=== PATIENT | male | born 1940 | race Caucasian/White ===

== ENCOUNTER → 2018-03-23 | Outpatient (CLI) | payer MEDICARE, OTHER | END | disposition home or self-care (01) | LOC: VAS 09:57 | DX: I65.23 Occlusion and stenosis of bilateral carotid arteries (principal); Z88.0 Allergy status to penicillin | CPT/HCPCS: 93880 ==

== ENCOUNTER 2018-07-22 21:07 | Inpatient (IN) | payer MEDICARE, OTHER ==
[2018-07-22 22:25] LABS: ADD MAN DIFF? NO
[2018-07-22 22:27] LABS: BASOPHILS % 0.6 % (0.0-2.0); EOSINOPHILS # 0.3 10^3/ul (0.0-0.5); EOSINOPHILS % 6.3 % (0.0-7.0); HEMATOCRIT 28.4 % (42.0-52.0); HEMOGLOBIN 8.7 g/dl (14.0-18.0); LYMPHOCYTES # 1.1 10^3/ul (0.8-2.9); LYMPHOCYTES % 22.7 % (15.0-51.0); MEAN CORPUSCULAR HEMOGLOBIN 27.4 pg (29.0-33.0); MEAN CORPUSCULAR HGB CONC 30.6 g/dl (32.0-37.0); MEAN CORPUSCULAR VOLUME 89.3 fl (82.0-101.0); MEAN PLATELET VOLUME 9.4 fl (7.4-10.4); MONOCYTE # 0.5 10^3/ul (0.3-0.9); MONOCYTES % 10.2 % (0.0-11.0); NEUTROPHIL # 2.8 10^3/ul (1.6-7.5); PLATELET COUNT 113 10^3/UL (140-415); RED BLOOD COUNT 3.18 10^6/ul (4.70-6.10); RED CELL DISTRIBUTION WIDTH 14.4 % (11.5-14.5)
[2018-07-22 22:27] LABS: WHITE BLOOD COUNT 4.6 10^3/ul (4.8-10.8)
[2018-07-22 22:44] LABS: ANION GAP 3 (5-13); BLOOD UREA NITROGEN 46 mg/dl (7-20); CALCIUM 8.3 mg/dl (8.4-10.2); CARBON DIOXIDE 25 mmol/L (21-31); CHLORIDE 107 mmol/L (97-110); CREATININE 2.21 mg/dl (0.61-1.24); GLUCOSE 95 mg/dl (70-220); POTASSIUM 5.6 mmol/L (3.5-5.1); SODIUM 135 mmol/L (135-144)
[2018-07-22 22:55] LABS: TROPONIN-I 0.013 ng/ml (0.000-0.120)
[2018-07-22] MEDS ORDERED: ONDANSETRON 4 MG INJ IV (23:00)
[2018-07-22] MEDS ORDERED: BISACODYL (EC) 5 MG TAB PO (23:00)
[2018-07-22] MEDS ORDERED: NACL 0.9% 3 ML SYG IV (23:00)
[2018-07-22] MEDS ORDERED: ACETAMINOPHEN 325 MG TAB PO (23:00)
[2018-07-22] MEDS: SOD CHLORIDE 0.9% 500 ML IV (23:04)
[2018-07-22 23:55] LABS: CREATINE KINASE 50 IU/L (23-200)
[2018-07-22] MEDS: AMLODIPINE 5 MG TAB PO (23:58)
[2018-07-22] MEDS: hydrALAzine 20 MG INJ IV (23:59)
[2018-07-23 00:08] LABS: CK INDEX 1.9; CK-MB 0.96 ng/ml (0.0-2.4); TROPONIN-I 0.013 ng/ml (0.000-0.120)
[2018-07-23] MEDS: ALBUTEROL 0.083% (NEB) 2.5 MG/3 ML AMP HHN (03:48)
[2018-07-23 04:22] LABS: ADD MAN DIFF? NO
[2018-07-23 04:24] LABS: BASOPHILS % 0.4 % (0.0-2.0); EOSINOPHILS # 0.2 10^3/ul (0.0-0.5); EOSINOPHILS % 4.1 % (0.0-7.0); HEMATOCRIT 29.4 % (42.0-52.0); HEMOGLOBIN 9.2 g/dl (14.0-18.0); LYMPHOCYTES # 1.1 10^3/ul (0.8-2.9); LYMPHOCYTES % 22.2 % (15.0-51.0); MEAN CORPUSCULAR HEMOGLOBIN 27.6 pg (29.0-33.0); MEAN CORPUSCULAR HGB CONC 31.3 g/dl (32.0-37.0); MEAN CORPUSCULAR VOLUME 88.3 fl (82.0-101.0); MEAN PLATELET VOLUME 9.2 fl (7.4-10.4); MONOCYTE # 0.5 10^3/ul (0.3-0.9); MONOCYTES % 9.2 % (0.0-11.0); NEUTROPHIL # 3.1 10^3/ul (1.6-7.5); NEUTROPHILS % 63.7 % (39.0-77.0); PLATELET COUNT 108 10^3/UL (140-415); RED BLOOD COUNT 3.33 10^6/ul (4.70-6.10); RED CELL DISTRIBUTION WIDTH 14.4 % (11.5-14.5)
[2018-07-23 04:24] LABS: WHITE BLOOD COUNT 4.9 10^3/ul (4.8-10.8)
[2018-07-23 04:32] LABS: HEMOGLOBIN A1C 5.4 % (0-5.9)
[2018-07-23 04:51] LABS: CREATINE KINASE 49 IU/L (23-200)
[2018-07-23 04:53] LABS: ALANINE AMINOTRANSFERASE 10 IU/L (13-69); ALBUMIN 3.4 g/dl (3.3-4.9); ALBUMIN/GLOBULIN RATIO 1.13; ALKALINE PHOSPHATASE 79 IU/L (42-121); ANION GAP 8 (5-13); ASPARTATE AMINO TRANSFERASE 18 IU/L (15-46); BILIRUBIN,INDIRECT 0.1 mg/dl (0-1.1); BILIRUBIN,TOTAL 0.1 mg/dl (0.2-1.3); BLOOD UREA NITROGEN 45 mg/dl (7-20); CALCIUM 8.6 mg/dl (8.4-10.2); CARBON DIOXIDE 22 mmol/L (21-31); CHLORIDE 109 mmol/L (97-110); CHOL/HDL RATIO 3.5 RATIO; CHOLESTEROL 128 mg/dl (100-200); CREATININE 2.05 mg/dl (0.61-1.24); GLUCOSE 90 mg/dl (70-220); HDL CHOLESTEROL 36 mg/dl (31-75); LDL CHOLESTEROL,CALCULATED 76 mg/dl; MAGNESIUM 2.6 mg/dl (1.7-2.5); POTASSIUM 5.3 mmol/L (3.5-5.1); SODIUM 139 mmol/L (135-144); TOTAL PROTEIN 6.4 g/dl (6.1-8.1); TRIGLYCERIDES 79 mg/dl (0-149)
[2018-07-23 05:04] LABS: CK INDEX 1.5; CK-MB 0.75 ng/ml (0.0-2.4); TROPONIN-I < 0.012 ng/ml (0.000-0.120)
[2018-07-23] MEDS: PANTOPRAZOLE (EC) 40 MG TAB PO (06:42)
[2018-07-23] MEDS ORDERED: NON-FORMULARY/PATIENT OWN MED (Omeprazole* 20 MG) PO (09:00)
[2018-07-23] MEDS: ASPIRIN (EC) 81 MG TAB PO (09:04)
[2018-07-23] MEDS: DIPYRIDAMOLE/ASPIRIN (SR) CAP PO ×2 (09:04→22:19)
[2018-07-23] MEDS: AMLODIPINE 5 MG TAB PO (09:05)
[2018-07-23] MEDS: DOCUSATE SODIUM 100 MG CAP PO ×2 (09:05→22:17)
[2018-07-23] MEDS: METOPROLOL 50 MG TAB PO ×2 (10:54→22:18)
[2018-07-23] MEDS: FINASTERIDE 5 MG TAB PO (10:54)
[2018-07-23 12:11] LABS: IRON 67 ug/dl (35-150)
[2018-07-23 12:20] LABS: % IRON SATURATION 28 % SAT (22-52); TOTAL IRON BINDING CAPACITY 239 ug/dl (241-421)
[2018-07-23] MEDS: ISOSORBIDE DINITRATE 10 MG TAB PO ×2 (14:27→22:19)
[2018-07-23 18:17] LABS: ADD UMIC YES; UR ASCORBIC ACID NEGATIVE (NEGATIVE); UR BILIRUBIN (Dip) NEGATIVE (NEGATIVE); UR BLOOD (Dip) NEGATIVE (NEGATIVE); UR CLARITY CLEAR (CLEAR); UR COLOR YELLOW (YELLOW); UR GLUCOSE (Dip) NEGATIVE (NEGATIVE); UR KETONES (Dip) NEGATIVE (NEGATIVE); UR LEUKOCYTE ESTERASE (Dip) NEGATIVE Leu/ul (NEGATIVE); UR NITRITE (Dip) NEGATIVE (NEGATIVE); UR RBC 0 /HPF (0-5); UR TOTAL PROTEIN (Dip) 1+ mg/dl (NEGATIVE); UR UROBILINOGEN (Dip) NEGATIVE (NEGATIVE); UR WBC 0 /HPF (0-5)
[2018-07-23 18:39] LABS: SODIUM,URINE RANDOM 37 mmol/L (30-90)
[2018-07-23 18:39] LABS: CREATININE,URINE RANDOM 76.79 mg/dl (20-370)
[2018-07-23] MEDS: TERAZOSIN 5 MG CAP PO (21:00)
[2018-07-23] MEDS: ACETAMINOPHEN 325 MG TAB PO (22:17)
[2018-07-24] MEDS: ONDANSETRON 4 MG INJ IV ×2 (04:10→23:44)
[2018-07-24] MEDS: PANTOPRAZOLE (EC) 40 MG TAB PO (05:00)
[2018-07-24 05:21] LABS: ADD MAN DIFF? NO
[2018-07-24 05:24] LABS: WHITE BLOOD COUNT 6.2 10^3/ul (4.8-10.8)
[2018-07-24 05:24] LABS: BASOPHILS % 0.5 % (0.0-2.0); EOSINOPHILS # 0.1 10^3/ul (0.0-0.5); EOSINOPHILS % 1.5 % (0.0-7.0); HEMATOCRIT 25.7 % (42.0-52.0); LYMPHOCYTES # 0.8 10^3/ul (0.8-2.9); LYMPHOCYTES % 12.3 % (15.0-51.0); MEAN CORPUSCULAR HEMOGLOBIN 27.4 pg (29.0-33.0); MEAN CORPUSCULAR HGB CONC 31.1 g/dl (32.0-37.0); MEAN PLATELET VOLUME 10.1 fl (7.4-10.4); MONOCYTE # 0.5 10^3/ul (0.3-0.9); MONOCYTES % 7.9 % (0.0-11.0); NEUTROPHIL # 4.8 10^3/ul (1.6-7.5); NEUTROPHILS % 77.5 % (39.0-77.0); PLATELET COUNT 114 10^3/UL (140-415); RED BLOOD COUNT 2.92 10^6/ul (4.70-6.10); RED CELL DISTRIBUTION WIDTH 14.2 % (11.5-14.5)
[2018-07-24 05:55] LABS: ANION GAP 7 (5-13); BLOOD UREA NITROGEN 51 mg/dl (7-20); CALCIUM 8.6 mg/dl (8.4-10.2); CARBON DIOXIDE 22 mmol/L (21-31); CHLORIDE 104 mmol/L (97-110); CREATININE 2.44 mg/dl (0.61-1.24); GLUCOSE 113 mg/dl (70-220); POTASSIUM 5.2 mmol/L (3.5-5.1); SODIUM 133 mmol/L (135-144)
[2018-07-24] MEDS: DOCUSATE SODIUM 100 MG CAP PO ×2 (10:46→20:21)
[2018-07-24] MEDS: ISOSORBIDE DINITRATE 10 MG TAB PO ×3 (10:46→20:21)
[2018-07-24] MEDS: METOPROLOL 50 MG TAB PO (10:47)
[2018-07-24] MEDS: AMLODIPINE 5 MG TAB PO ×2 (10:47→23:41)
[2018-07-24] MEDS: DIPYRIDAMOLE/ASPIRIN (SR) CAP PO ×2 (10:47→20:22)
[2018-07-24] MEDS: FINASTERIDE 5 MG TAB PO (10:47)
[2018-07-24] MEDS: EPOETIN 10000 UNITS/ML (NON ESRD/NON ONCOLOGY) SC (10:49)
[2018-07-24] MEDS: SODIUM POLYSTYRENE 15 GM KIT (POWDER + SORBITOL) PO (13:46)
[2018-07-24] MEDS: ACETAMINOPHEN 325 MG TAB PO (20:19)
[2018-07-24] MEDS: TERAZOSIN 5 MG CAP PO (20:21)
[2018-07-24] MEDS: METOPROLOL 100 MG TAB PO (20:22)
[2018-07-24] MEDS: traZODone 50 MG TAB PO (23:45)
[2018-07-25 05:26] LABS: ADD MAN DIFF? NO
[2018-07-25 05:34] LABS: BASOPHILS % 0.3 % (0.0-2.0); EOSINOPHILS # 0.1 10^3/ul (0.0-0.5); EOSINOPHILS % 1.3 % (0.0-7.0); HEMATOCRIT 28.6 % (42.0-52.0); HEMOGLOBIN 8.9 g/dl (14.0-18.0); LYMPHOCYTES # 1.1 10^3/ul (0.8-2.9); LYMPHOCYTES % 17.7 % (15.0-51.0); MEAN CORPUSCULAR HEMOGLOBIN 27.6 pg (29.0-33.0); MEAN CORPUSCULAR HGB CONC 31.1 g/dl (32.0-37.0); MEAN CORPUSCULAR VOLUME 88.5 fl (82.0-101.0); MEAN PLATELET VOLUME 10.8 fl (7.4-10.4); MONOCYTE # 0.5 10^3/ul (0.3-0.9); MONOCYTES % 7.1 % (0.0-11.0); NEUTROPHIL # 4.7 10^3/ul (1.6-7.5); NEUTROPHILS % 73.3 % (39.0-77.0); PLATELET COUNT 134 10^3/UL (140-415); RED BLOOD COUNT 3.23 10^6/ul (4.70-6.10); RED CELL DISTRIBUTION WIDTH 14.1 % (11.5-14.5)
[2018-07-25 05:34] LABS: WHITE BLOOD COUNT 6.4 10^3/ul (4.8-10.8)
[2018-07-25 05:55] LABS: PHOSPHORUS 4.7 mg/dl (2.5-4.9)
[2018-07-25 05:55] LABS: MAGNESIUM 2.5 mg/dl (1.7-2.5)
[2018-07-25] MEDS: PANTOPRAZOLE (EC) 40 MG TAB PO (06:17)
[2018-07-25 06:19] LABS: ANION GAP 10 (5-13); BLOOD UREA NITROGEN 43 mg/dl (7-20); CALCIUM 8.4 mg/dl (8.4-10.2); CARBON DIOXIDE 22 mmol/L (21-31); CHLORIDE 100 mmol/L (97-110); CREATININE 2.68 mg/dl (0.61-1.24); GLUCOSE 154 mg/dl (70-220); POTASSIUM 4.5 mmol/L (3.5-5.1); SODIUM 132 mmol/L (135-144)
[2018-07-25] MEDS: FINASTERIDE 5 MG TAB PO (08:43)
[2018-07-25] MEDS: DOCUSATE SODIUM 100 MG CAP PO ×2 (08:43→20:34)
[2018-07-25] MEDS: AMLODIPINE 5 MG TAB PO ×3 (08:44→09:00)
[2018-07-25] MEDS: ISOSORBIDE DINITRATE 10 MG TAB PO ×3 (08:44→20:35)
[2018-07-25] MEDS: METOPROLOL 100 MG TAB PO ×2 (08:44→20:35)
[2018-07-25] MEDS: DIPYRIDAMOLE/ASPIRIN (SR) CAP PO ×3 (08:45→09:00)
[2018-07-25] MEDS ORDERED: AMLODIPINE 10 MG TAB PO (09:00)
[2018-07-25] MEDS: NIFEdipine (XL) 60 MG TAB PO (09:30)
[2018-07-25 17:51] LABS: CREATININE, RANDOM URINE 77 mg/dL (20-320); MICROALBUMIN 43.2 mg/dL; MICROALBUMIN/CREATININE RATIO 561 (<30)
[2018-07-25] MEDS: TERAZOSIN 5 MG CAP PO (20:34)
[2018-07-25] MEDS: NIFEdipine (XL) 30 MG TAB PO (20:35)
[2018-07-26] MEDS: PANTOPRAZOLE (EC) 40 MG TAB PO (05:25)
[2018-07-26 05:55] LABS: ADD MAN DIFF? NO
[2018-07-26 05:59] LABS: BASOPHILS % 0.4 % (0.0-2.0); EOSINOPHILS # 0.2 10^3/ul (0.0-0.5); EOSINOPHILS % 4.3 % (0.0-7.0); HEMOGLOBIN 8.7 g/dl (14.0-18.0); LYMPHOCYTES % 22.6 % (15.0-51.0); MEAN CORPUSCULAR HEMOGLOBIN 28.1 pg (29.0-33.0); MEAN CORPUSCULAR HGB CONC 32.2 g/dl (32.0-37.0); MEAN CORPUSCULAR VOLUME 87.1 fl (82.0-101.0); MONOCYTE # 0.6 10^3/ul (0.3-0.9); MONOCYTES % 12.6 % (0.0-11.0); NEUTROPHIL # 2.8 10^3/ul (1.6-7.5); NEUTROPHILS % 59.7 % (39.0-77.0); PLATELET COUNT 124 10^3/UL (140-415); RED CELL DISTRIBUTION WIDTH 14.3 % (11.5-14.5)
[2018-07-26 05:59] LABS: WHITE BLOOD COUNT 4.6 10^3/ul (4.8-10.8)
[2018-07-26 06:40] LABS: ANION GAP 2 (5-13); BLOOD UREA NITROGEN 39 mg/dl (7-20); CALCIUM 8.2 mg/dl (8.4-10.2); CARBON DIOXIDE 27 mmol/L (21-31); CHLORIDE 103 mmol/L (97-110); CREATININE 2.67 mg/dl (0.61-1.24); GLUCOSE 95 mg/dl (70-220); MAGNESIUM 2.4 mg/dl (1.7-2.5); PHOSPHORUS 4.3 mg/dl (2.5-4.9); POTASSIUM 4.9 mmol/L (3.5-5.1); SODIUM 132 mmol/L (135-144)
[2018-07-26] MEDS: DIPYRIDAMOLE/ASPIRIN (SR) CAP PO (08:03)
[2018-07-26] MEDS: NIFEdipine (XL) 30 MG TAB PO ×2 (08:21→21:00)
[2018-07-26] MEDS: FINASTERIDE 5 MG TAB PO (08:22)
[2018-07-26] MEDS: DOCUSATE SODIUM 100 MG CAP PO ×2 (08:22→20:59)
[2018-07-26] MEDS: ISOSORBIDE DINITRATE 10 MG TAB PO ×3 (08:22→20:59)
[2018-07-26] MEDS: METOPROLOL 100 MG TAB PO ×2 (08:22→21:00)
[2018-07-26] MEDS: TERAZOSIN 5 MG CAP PO (20:59)
[2018-07-27 05:23] LABS: ANION GAP 9 (5-13); BLOOD UREA NITROGEN 40 mg/dl (7-20); CARBON DIOXIDE 24 mmol/L (21-31); CHLORIDE 97 mmol/L (97-110); CREATININE 2.74 mg/dl (0.61-1.24); GLUCOSE 108 mg/dl (70-220); MAGNESIUM 2.3 mg/dl (1.7-2.5); PHOSPHORUS 4.6 mg/dl (2.5-4.9); POTASSIUM 4.7 mmol/L (3.5-5.1); SODIUM 130 mmol/L (135-144)
[2018-07-27] MEDS: PANTOPRAZOLE (EC) 40 MG TAB PO (05:41)
[2018-07-27] MEDS: ACETAMINOPHEN 325 MG TAB PO (07:39)
[2018-07-27] MEDS: DOCUSATE SODIUM 100 MG CAP PO ×2 (08:39→20:28)
[2018-07-27] MEDS: ASPIRIN (EC) 81 MG TAB PO (08:39)
[2018-07-27] MEDS: FINASTERIDE 5 MG TAB PO (08:39)
[2018-07-27] MEDS: METOPROLOL 100 MG TAB PO ×2 (08:40→20:29)
[2018-07-27] MEDS: NIFEdipine (XL) 30 MG TAB PO ×2 (08:40→20:29)
[2018-07-27] MEDS: ISOSORBIDE DINITRATE 10 MG TAB PO ×3 (08:40→20:29)
[2018-07-27] MEDS: TERAZOSIN 5 MG CAP PO (20:29)
[2018-07-28] MEDS: PANTOPRAZOLE (EC) 40 MG TAB PO (05:37)
[2018-07-28 05:53] LABS: ADD MAN DIFF? NO
[2018-07-28 05:56] LABS: BASOPHILS % 0.4 % (0.0-2.0); EOSINOPHILS # 0.3 10^3/ul (0.0-0.5); EOSINOPHILS % 4.5 % (0.0-7.0); HEMATOCRIT 25.5 % (42.0-52.0); HEMOGLOBIN 8.2 g/dl (14.0-18.0); LYMPHOCYTES # 0.9 10^3/ul (0.8-2.9); LYMPHOCYTES % 16.2 % (15.0-51.0); MEAN CORPUSCULAR HEMOGLOBIN 27.6 pg (29.0-33.0); MEAN CORPUSCULAR HGB CONC 32.2 g/dl (32.0-37.0); MEAN CORPUSCULAR VOLUME 85.9 fl (82.0-101.0); MEAN PLATELET VOLUME 9.7 fl (7.4-10.4); MONOCYTE # 0.6 10^3/ul (0.3-0.9); MONOCYTES % 10.7 % (0.0-11.0); NEUTROPHIL # 3.7 10^3/ul (1.6-7.5); NEUTROPHILS % 67.8 % (39.0-77.0); PLATELET COUNT 147 10^3/UL (140-415); RED BLOOD COUNT 2.97 10^6/ul (4.70-6.10); RED CELL DISTRIBUTION WIDTH 14.4 % (11.5-14.5)
[2018-07-28 05:56] LABS: WHITE BLOOD COUNT 5.5 10^3/ul (4.8-10.8)
[2018-07-28 06:32] LABS: ANION GAP 10 (5-13); BLOOD UREA NITROGEN 37 mg/dl (7-20); CALCIUM 7.9 mg/dl (8.4-10.2); CARBON DIOXIDE 24 mmol/L (21-31); CHLORIDE 98 mmol/L (97-110); CREATININE 2.56 mg/dl (0.61-1.24); GLUCOSE 141 mg/dl (70-220); MAGNESIUM 2.4 mg/dl (1.7-2.5); PHOSPHORUS 3.9 mg/dl (2.5-4.9); POTASSIUM 4.3 mmol/L (3.5-5.1); SODIUM 132 mmol/L (135-144)
[2018-07-28] MEDS: ASPIRIN (EC) 81 MG TAB PO (08:40)
[2018-07-28] MEDS: FINASTERIDE 5 MG TAB PO (08:40)
[2018-07-28] MEDS: NIFEdipine (XL) 30 MG TAB PO (08:41)
[2018-07-28] MEDS: ISOSORBIDE DINITRATE 10 MG TAB PO ×2 (08:42→16:11)
[2018-07-28] MEDS: DOCUSATE SODIUM 100 MG CAP PO (08:42)
[2018-07-28] MEDS: METOPROLOL 100 MG TAB PO (08:42)
== END 2018-07-28 20:30 | disposition home or self-care (01) | DRG 312 ==
LOC: 6WM 22:58 → 2NE 07-28 13:57 → E/R 21:07
DX: I95.2 Hypotension due to drugs (principal); N17.9 Acute kidney failure, unspecified; I16.1 Hypertensive emergency; E87.1 Hypo-osmolality and hyponatremia; E87.5 Hyperkalemia; I65.21 Occlusion and stenosis of right carotid artery; D63.1 Anemia in chronic kidney disease; N18.3 Chronic kidney disease, stage 3 (moderate); R55 Syncope and collapse; I12.9 Hypertensive chronic kidney disease with stage 1 through stage 4 chronic kidney disease, or unspecified chronic kidney disease; E78.5 Hyperlipidemia, unspecified; I25.10 Atherosclerotic heart disease of native coronary artery without angina pectoris; N40.0 Benign prostatic hyperplasia without lower urinary tract symptoms; T44.6X5A Adverse effect of alpha-adrenoreceptor antagonists, initial encounter; Y92.019 Unspecified place in single-family (private) house as the place of occurrence of the external cause
CPT/HCPCS: 36415; 70450; 70549; 70551; 71045; 72100; 76775; 80048; 80053; 80061; 81001; 81003; 82043; 82550; 82553; 82728; 82962; 83036; 83540; 83735; 84100; 84155; 84300; 84443; 84484; 85025; 93005; 93306; 93880; 94664; 97161; 99285-25; G0378

== ENCOUNTER → 2018-07-22 | Outpatient (CLI) | payer MEDICARE, OTHER | END | disposition home or self-care (01) | LOC: RAD 11:11 | DX: M54.5 Low back pain (principal) | CPT/HCPCS: 72100 ==

== ENCOUNTER 2018-09-29 10:45 | Inpatient (IN) | payer MEDICARE, OTHER ==
[2018-09-29 12:21] LABS: ADD MAN DIFF? NO
[2018-09-29 12:29] LABS: WHITE BLOOD COUNT 5.1 10^3/ul (4.8-10.8)
[2018-09-29 12:29] LABS: BASOPHILS % 0.6 % (0.0-2.0); EOSINOPHILS # 0.3 10^3/ul (0.0-0.5); EOSINOPHILS % 6.6 % (0.0-7.0); HEMATOCRIT 28.5 % (42.0-52.0); HEMOGLOBIN 8.9 g/dl (14.0-18.0); LYMPHOCYTES % 20.2 % (15.0-51.0); MEAN CORPUSCULAR HEMOGLOBIN 27.7 pg (29.0-33.0); MEAN CORPUSCULAR HGB CONC 31.2 g/dl (32.0-37.0); MEAN CORPUSCULAR VOLUME 88.8 fl (82.0-101.0); MEAN PLATELET VOLUME 9.2 fl (7.4-10.4); MONOCYTE # 0.5 10^3/ul (0.3-0.9); MONOCYTES % 9.3 % (0.0-11.0); NEUTROPHIL # 3.2 10^3/ul (1.6-7.5); NEUTROPHILS % 63.1 % (39.0-77.0); PLATELET COUNT 119 10^3/UL (140-415); RED BLOOD COUNT 3.21 10^6/ul (4.70-6.10); RED CELL DISTRIBUTION WIDTH 15.1 % (11.5-14.5)
[2018-09-29 12:58] LABS: ANION GAP 8 (5-13); BLOOD UREA NITROGEN 42 mg/dl (7-20); CALCIUM 8.8 mg/dl (8.4-10.2); CARBON DIOXIDE 23 mmol/L (21-31); CHLORIDE 108 mmol/L (97-110); CREATININE 2.55 mg/dl (0.61-1.24); GLUCOSE 100 mg/dl (70-220); POTASSIUM 5.3 mmol/L (3.5-5.1); SODIUM 139 mmol/L (135-144)
[2018-09-29] MEDS: NA POLYST SULFON 15 GM/60 ML BTL PO (13:12)
[2018-09-29] MEDS ORDERED: ACETAMINOPHEN 325 MG TAB PO (13:30)
[2018-09-29] MEDS ORDERED: ONDANSETRON 4 MG INJ IV ×2 (13:30→15:00)
[2018-09-29] MEDS ORDERED: NACL 0.9% 3 ML SYG IV (15:00)
[2018-09-29] MEDS ORDERED: DOCUSATE SODIUM 100 MG CAP PO (15:00)
[2018-09-29] MEDS ORDERED: MAGNESIUM HYDROXIDE 30ML CUP PO (15:00)
[2018-09-29] MEDS ORDERED: TERAZOSIN 1 MG CAP (20:39)
[2018-09-29] MEDS: GUAIFENESIN/DM 5ML CUP PO (20:41)
[2018-09-29] MEDS: HEPARIN 5,000 UNIT/1 ML VIAL SC (20:46)
[2018-09-29] MEDS: METOPROLOL 100 MG TAB PO (21:00)
[2018-09-29] MEDS: TERAZOSIN 5 MG CAP PO (22:38)
[2018-09-30 05:53] LABS: ADD MAN DIFF? NO
[2018-09-30 06:02] LABS: BASOPHILS % 0.6 % (0.0-2.0); EOSINOPHILS # 0.4 10^3/ul (0.0-0.5); EOSINOPHILS % 7.2 % (0.0-7.0); HEMATOCRIT 25.7 % (42.0-52.0); LYMPHOCYTES # 1.1 10^3/ul (0.8-2.9); LYMPHOCYTES % 21.2 % (15.0-51.0); MEAN CORPUSCULAR HEMOGLOBIN 27.4 pg (29.0-33.0); MEAN CORPUSCULAR HGB CONC 31.1 g/dl (32.0-37.0); MEAN PLATELET VOLUME 9.5 fl (7.4-10.4); MONOCYTE # 0.6 10^3/ul (0.3-0.9); MONOCYTES % 11.6 % (0.0-11.0); PLATELET COUNT 109 10^3/UL (140-415); RED BLOOD COUNT 2.92 10^6/ul (4.70-6.10); RED CELL DISTRIBUTION WIDTH 15.3 % (11.5-14.5)
[2018-09-30 06:30] LABS: ANION GAP 5 (5-13); BLOOD UREA NITROGEN 47 mg/dl (7-20); CALCIUM 8.5 mg/dl (8.4-10.2); CARBON DIOXIDE 25 mmol/L (21-31); CHLORIDE 110 mmol/L (97-110); CREATININE 2.51 mg/dl (0.61-1.24); GLUCOSE 81 mg/dl (70-220); MAGNESIUM 2.6 mg/dl (1.7-2.5); POTASSIUM 5.9 mmol/L (3.5-5.1); SODIUM 140 mmol/L (135-144)
[2018-09-30] MEDS ORDERED: INSULIN REGULAR, HUMAN 100 UNIT/1 ML 3ML VIAL IVP (08:25)
[2018-09-30] MEDS ORDERED: DEXTROSE 50% 50 ML SYRINGE IV (08:30)
[2018-09-30] MEDS ORDERED: NA POLYST SULFON 15 GM/60 ML BTL PO (09:30)
[2018-09-30] MEDS: NA POLYST SULFON 15 GM/60 ML BTL PO ×2 (09:39→11:40)
[2018-09-30] MEDS: FINASTERIDE 5 MG TAB PO (09:40)
[2018-09-30] MEDS: NIFEdipine (XL) 30 MG TAB PO ×2 (09:40→20:59)
[2018-09-30] MEDS: ASPIRIN (EC) 81 MG TAB PO (09:40)
[2018-09-30] MEDS: PANTOPRAZOLE (EC) 40 MG TAB PO (09:40)
[2018-09-30] MEDS: TERAZOSIN 5 MG CAP PO ×2 (09:40→20:58)
[2018-09-30] MEDS: METOPROLOL 100 MG TAB PO ×2 (09:41→20:59)
[2018-09-30] MEDS: HEPARIN 5,000 UNIT/1 ML VIAL SC ×2 (09:51→21:15)
[2018-09-30] MEDS: INSULIN REGULAR, HUMAN 100 UNIT/1 ML 3ML VIAL IVP (09:51)
[2018-09-30] MEDS: EPOETIN ALFA-EPBX (ESRD) 10,000 UNIT/ML VIAL SC (11:42)
[2018-09-30] MEDS: hydrALAzine 20 MG INJ IV (15:34)
[2018-10-01 06:18] LABS: ADD MAN DIFF? NO
[2018-10-01 06:23] LABS: BASOPHILS % 0.3 % (0.0-2.0); EOSINOPHILS # 0.3 10^3/ul (0.0-0.5); EOSINOPHILS % 4.9 % (0.0-7.0); HEMATOCRIT 28.2 % (42.0-52.0); HEMOGLOBIN 8.8 g/dl (14.0-18.0); LYMPHOCYTES # 1.4 10^3/ul (0.8-2.9); LYMPHOCYTES % 21.9 % (15.0-51.0); MEAN CORPUSCULAR HEMOGLOBIN 27.2 pg (29.0-33.0); MEAN CORPUSCULAR HGB CONC 31.2 g/dl (32.0-37.0); MEAN PLATELET VOLUME 9.6 fl (7.4-10.4); MONOCYTE # 0.5 10^3/ul (0.3-0.9); MONOCYTES % 8.6 % (0.0-11.0); PLATELET COUNT 127 10^3/UL (140-415); RED BLOOD COUNT 3.24 10^6/ul (4.70-6.10); RED CELL DISTRIBUTION WIDTH 15.2 % (11.5-14.5)
[2018-10-01 06:23] LABS: WHITE BLOOD COUNT 6.3 10^3/ul (4.8-10.8)
[2018-10-01 06:50] LABS: ANION GAP 9 (5-13); BLOOD UREA NITROGEN 40 mg/dl (7-20); CALCIUM 8.7 mg/dl (8.4-10.2); CARBON DIOXIDE 22 mmol/L (21-31); CHLORIDE 108 mmol/L (97-110); CREATININE 2.47 mg/dl (0.61-1.24); GLUCOSE 95 mg/dl (70-220); MAGNESIUM 2.4 mg/dl (1.7-2.5); PHOSPHORUS 4.1 mg/dl (2.5-4.9); POTASSIUM 4.3 mmol/L (3.5-5.1); SODIUM 139 mmol/L (135-144)
[2018-10-01] MEDS: FINASTERIDE 5 MG TAB PO (09:40)
[2018-10-01] MEDS: ASPIRIN (EC) 81 MG TAB PO (09:40)
[2018-10-01] MEDS: METOPROLOL 100 MG TAB PO ×2 (09:41→21:37)
[2018-10-01] MEDS: PANTOPRAZOLE (EC) 40 MG TAB PO (09:41)
[2018-10-01] MEDS: NIFEdipine (XL) 30 MG TAB PO ×2 (09:41→21:37)
[2018-10-01] MEDS: TERAZOSIN 5 MG CAP PO ×2 (09:41→21:37)
[2018-10-01] MEDS: HEPARIN 5,000 UNIT/1 ML VIAL SC ×2 (09:47→21:47)
[2018-10-01] MEDS: ACETAMINOPHEN 325 MG TAB PO (17:39)
[2018-10-02 06:06] LABS: ADD MAN DIFF? NO
[2018-10-02 06:23] LABS: WHITE BLOOD COUNT 5.2 10^3/ul (4.8-10.8)
[2018-10-02 06:23] LABS: BASOPHILS % 0.6 % (0.0-2.0); EOSINOPHILS # 0.3 10^3/ul (0.0-0.5); EOSINOPHILS % 6.3 % (0.0-7.0); HEMATOCRIT 26.2 % (42.0-52.0); HEMOGLOBIN 8.3 g/dl (14.0-18.0); LYMPHOCYTES # 1.3 10^3/ul (0.8-2.9); LYMPHOCYTES % 24.6 % (15.0-51.0); MEAN CORPUSCULAR HEMOGLOBIN 27.8 pg (29.0-33.0); MEAN CORPUSCULAR HGB CONC 31.7 g/dl (32.0-37.0); MEAN CORPUSCULAR VOLUME 87.6 fl (82.0-101.0); MEAN PLATELET VOLUME 9.7 fl (7.4-10.4); MONOCYTE # 0.5 10^3/ul (0.3-0.9); MONOCYTES % 10.2 % (0.0-11.0); NEUTROPHILS % 57.9 % (39.0-77.0); PLATELET COUNT 113 10^3/UL (140-415); RED BLOOD COUNT 2.99 10^6/ul (4.70-6.10); RED CELL DISTRIBUTION WIDTH 14.9 % (11.5-14.5)
[2018-10-02 07:01] LABS: ALBUMIN 3.3 g/dl (3.3-4.9); ANION GAP 8 (5-13); BLOOD UREA NITROGEN 42 mg/dl (7-20); CALCIUM 8.8 mg/dl (8.4-10.2); CARBON DIOXIDE 23 mmol/L (21-31); CHLORIDE 109 mmol/L (97-110); CREATININE 2.57 mg/dl (0.61-1.24); GLUCOSE 93 mg/dl (70-220); MAGNESIUM 2.4 mg/dl (1.7-2.5); PHOSPHORUS 4.2 mg/dl (2.5-4.9); POTASSIUM 4.5 mmol/L (3.5-5.1); SODIUM 140 mmol/L (135-144)
[2018-10-02] MEDS: TERAZOSIN 5 MG CAP PO (08:58)
[2018-10-02] MEDS: PANTOPRAZOLE (EC) 40 MG TAB PO (08:58)
[2018-10-02] MEDS: FINASTERIDE 5 MG TAB PO (08:58)
[2018-10-02] MEDS: NIFEdipine (XL) 30 MG TAB PO (08:58)
[2018-10-02] MEDS: METOPROLOL 100 MG TAB PO (08:58)
[2018-10-02] MEDS: ASPIRIN (EC) 81 MG TAB PO (08:58)
[2018-10-02] MEDS: HEPARIN 5,000 UNIT/1 ML VIAL SC (09:19)
== END 2018-10-02 16:00 | disposition home or self-care (01) | DRG 684 ==
LOC: E/R 10:45 → 6WM 13:09
DX: N17.9 Acute kidney failure, unspecified (principal); I12.9 Hypertensive chronic kidney disease with stage 1 through stage 4 chronic kidney disease, or unspecified chronic kidney disease; N18.3 Chronic kidney disease, stage 3 (moderate); E87.5 Hyperkalemia; D69.6 Thrombocytopenia, unspecified; N40.0 Benign prostatic hyperplasia without lower urinary tract symptoms; D64.9 Anemia, unspecified; I65.22 Occlusion and stenosis of left carotid artery; I25.10 Atherosclerotic heart disease of native coronary artery without angina pectoris
CPT/HCPCS: 80048; 80069; 83735; 84100; 85025; 93005; 97162; 97166; 99285-25

== ENCOUNTER 2019-01-31 13:58 | Inpatient (IN) | payer MEDICARE, OTHER ==
[2019-01-31] MEDS: LACTATED RINGER'S 1,000 ML IV (15:39)
[2019-01-31] MEDS ORDERED: GELATIN SIZE 100 SPONGE (15:55)
[2019-01-31] MEDS ORDERED: THROMBIN 5000 UNIT (RECOTHROM) VIAL (15:55)
[2019-01-31] MEDS ORDERED: HEPARIN 1000 UNITS/ML 10 ML INJ ×2 (15:56→17:57)
[2019-01-31] MEDS ORDERED: IOHEXOL 300MG/ML 30 ML BTL (15:56)
[2019-01-31] MEDS ORDERED: LIDOCAINE 1% (MPF) 30 ML INJ (15:56)
[2019-01-31] MEDS: HEPARIN 1000 UNITS/ML 10 ML INJ IRR (16:30)
[2019-01-31] MEDS ORDERED: SEVOFLURANE 15 MIN (17:00)
[2019-01-31] MEDS ORDERED: ONDANSETRON 4 MG INJ IV ×2 (17:00→20:00)
[2019-01-31] MEDS ORDERED: HYDROmorphONE 1 MG/5 ML IV SYRINGE IV ×2 (17:00)
[2019-01-31] MEDS ORDERED: GLYCOPYRROLATE 0.4 MG INJ (17:00)
[2019-01-31] MEDS ORDERED: PROCHLORPERAZINE 10 MG INJ IV (17:00)
[2019-01-31] MEDS ORDERED: DIPHENHYDRAMINE 50 MG INJ IV (17:00)
[2019-01-31] MEDS ORDERED: NEOSTIGMINE 3 MG/3 ML SYRINGE (17:00)
[2019-01-31] MEDS ORDERED: FENTAnyl 50 MCG/ML VIAL IV ×2 (17:00→20:00)
[2019-01-31] MEDS ORDERED: SUCCINYLCHOLINE CHLORIDE 100 MG/5 ML SYG IV (17:28)
[2019-01-31] MEDS ORDERED: LIDOCAINE 2% (SDV) 5 ML INJ (17:28)
[2019-01-31] MEDS ORDERED: ROCURONIUM 50 MG INJ (17:28)
[2019-01-31] MEDS ORDERED: DEXAMETHASONE 4 MG/ML 5 ML INJ (17:28)
[2019-01-31] MEDS ORDERED: FAMOTIDINE 20 MG INJ (17:28)
[2019-01-31] MEDS ORDERED: PROPOFOL 20 ML (17:28)
[2019-01-31] MEDS ORDERED: ONDANSETRON 4 MG INJ (17:28)
[2019-01-31] MEDS ORDERED: CLINDAMYCIN 900 MG (PMX) 50 ML IVPB (17:48)
[2019-01-31] MEDS ORDERED: FENTAnyl 50 MCG/ML VIAL (19:26)
[2019-01-31] MEDS ORDERED: hydrALAzine 20 MG INJ (19:28)
[2019-01-31] MEDS ORDERED: HYDROmorphONE 0.5 MG/0.5 ML SYG IV (20:00)
[2019-01-31] MEDS: HYDROmorphONE 0.5 MG/0.5 ML SYG IV (20:25)
[2019-01-31] MEDS: MEPERIDINE 25 MG INJ IV (20:57)
[2019-01-31] MEDS: hydrALAzine 20 MG INJ IV (20:59)
[2019-02-01] MEDS: HYDROmorphONE 1 MG/ML SYG IV ×4 (01:24→16:23)
[2019-02-01] MEDS: NIFEdipine (XL) 30 MG TAB PO ×3 (08:33→21:36)
[2019-02-01] MEDS: METOPROLOL 100 MG TAB PO ×2 (08:40→21:36)
[2019-02-01] MEDS: FINASTERIDE 5 MG TAB PO (08:40)
[2019-02-01] MEDS: METOPROLOL 5 MG INJ IV (09:50)
[2019-02-01] MEDS: SOD CHLORIDE 0.9% 1,000 ML IV (11:37)
[2019-02-01] MEDS: NA POLYST SULFON 15 GM/60 ML BTL PO (11:37)
[2019-02-01] MEDS: hydrALAzine 20 MG INJ IV (13:22)
[2019-02-02] MEDS: HYDROmorphONE 1 MG/ML SYG IV ×3 (02:51→18:17)
[2019-02-02] MEDS: SOD CHLORIDE 0.9% 1,000 ML IV (05:17)
[2019-02-02] MEDS: FINASTERIDE 5 MG TAB PO (08:02)
[2019-02-02] MEDS: NIFEdipine (XL) 30 MG TAB PO (08:03)
[2019-02-02] MEDS: METOPROLOL 100 MG TAB PO ×2 (08:03→21:43)
[2019-02-02] MEDS: NIFEdipine (XL) 60 MG TAB PO ×2 (08:11→21:47)
[2019-02-02] MEDS: TERAZOSIN 5 MG CAP PO ×2 (09:12→21:46)
[2019-02-02] MEDS: GUAIFENESIN/DM 5ML CUP PO (21:42)
[2019-02-03] MEDS: DOCUSATE SODIUM 100 MG CAP PO (04:00)
[2019-02-03] MEDS: BETHANECHOL 10 MG TAB PO ×3 (09:31→20:29)
[2019-02-03] MEDS: NIFEdipine (XL) 60 MG TAB PO ×2 (09:31→20:29)
[2019-02-03] MEDS: TERAZOSIN 5 MG CAP PO ×2 (09:31→20:29)
[2019-02-03] MEDS: METOPROLOL 100 MG TAB PO ×2 (09:32→20:30)
[2019-02-03] MEDS: FINASTERIDE 5 MG TAB PO (09:32)
[2019-02-03] MEDS: NA PHOSPHATE/BIPHOS 133 ML ENEMA PR (12:24)
[2019-02-03] MEDS ORDERED: CHLORPROMAZINE 10 MG TAB PO (16:30)
[2019-02-03] MEDS: CHLORPROMAZINE 25 MG TAB PO (18:04)
[2019-02-04] MEDS: NA PHOSPHATE/BIPHOS 133 ML ENEMA PR (05:34)
[2019-02-04] MEDS: BETHANECHOL 10 MG TAB PO ×3 (08:56→20:54)
[2019-02-04] MEDS: METOPROLOL 100 MG TAB PO ×2 (08:57→20:54)
[2019-02-04] MEDS: NIFEdipine (XL) 60 MG TAB PO ×2 (08:57→20:54)
[2019-02-04] MEDS: TERAZOSIN 5 MG CAP PO ×2 (08:57→20:52)
[2019-02-04] MEDS: FINASTERIDE 5 MG TAB PO (08:57)
[2019-02-04] MEDS: GUAIFENESIN/DM 5ML CUP PO (16:50)
[2019-02-05] MEDS: NIFEdipine (XL) 60 MG TAB PO ×2 (08:58→21:07)
[2019-02-05] MEDS: BETHANECHOL 10 MG TAB PO ×3 (08:58→21:05)
[2019-02-05] MEDS: METOPROLOL 100 MG TAB PO ×2 (08:58→21:05)
[2019-02-05] MEDS: FINASTERIDE 5 MG TAB PO (08:58)
[2019-02-05] MEDS: TERAZOSIN 5 MG CAP PO ×2 (08:58→21:06)
[2019-02-05] MEDS: GUAIFENESIN/DM 5ML CUP PO (21:40)
[2019-02-06] MEDS: FINASTERIDE 5 MG TAB PO (09:18)
[2019-02-06] MEDS: BETHANECHOL 10 MG TAB PO ×2 (09:20→13:48)
[2019-02-06] MEDS: TERAZOSIN 5 MG CAP PO (09:20)
[2019-02-06] MEDS: NIFEdipine (XL) 60 MG TAB PO (09:21)
[2019-02-06] MEDS: GUAIFENESIN/DM 5ML CUP PO (09:22)
[2019-02-06] MEDS: METOPROLOL 100 MG TAB PO (09:22)
[2019-02-06] MEDS: ACETAMINOPHEN 325 MG TAB PO (11:07)
== END 2019-02-06 17:00 | DRG 38 ==
LOC: REC 13:58 → 6WM 02-03 01:09 → ICU 20:18
PROC: 03CJ0ZZ Extirpation of Matter from Left Common Carotid Artery, Open Approach (ICD-10-PCS; principal; 2019-01-31 15:00)
PROC: B31 Imaging, Upper Arteries, Fluoroscopy (ICD-10-PCS; 2019-01-31 15:00)
PROC: 30233N1 Transfusion of Nonautologous Red Blood Cells into Peripheral Vein, Percutaneous Approach (ICD-10-PCS; 2019-01-31 16:52)
DX: I65.22 Occlusion and stenosis of left carotid artery (principal); N17.9 Acute kidney failure, unspecified; N18.4 Chronic kidney disease, stage 4 (severe); E87.5 Hyperkalemia; D69.6 Thrombocytopenia, unspecified; N13.9 Obstructive and reflux uropathy, unspecified; I12.9 Hypertensive chronic kidney disease with stage 1 through stage 4 chronic kidney disease, or unspecified chronic kidney disease; N40.1 Benign prostatic hyperplasia with lower urinary tract symptoms; R33.8 Other retention of urine; I25.10 Atherosclerotic heart disease of native coronary artery without angina pectoris; D64.9 Anemia, unspecified; Z79.82 Long term (current) use of aspirin
CPT/HCPCS: 36430; 70360; 71045; 76775; 80048; 80053; 81001; 81003; 82043; 82550; 82553; 83735; 84100; 84155; 84300; 84484; 85025; 85610; 85730; 86850; 86900; 86901; 86920; 87081; 88304; 93005; 97110; 97116; 97162; 97530